=== PATIENT | female | born 1995 | race Caucasian/White ===

== ENCOUNTER 2024-06-16 01:21 | Emergency (ER) | payer OTHER, SELFPAY ==
[~2024-06-16] VITALS: Ht 165.1 cm; Wt 97.7 kg
[2024-06-16] MEDS: IBUPROFEN 600MG TAB PO ONE (02:45)
[2024-06-16] MEDS: PERCOCET 5MG/325MG TAB PO ONE (04:35)
[2024-06-16] MEDS ORDERED: PERC5TAB12 PO (05:15)
[2024-06-16] MEDS: OXYCODONE/APAP 5MG/325MG(HOME DOSE PACK) PO ONE (05:37)
[2024-06-16 05:38] VITALS: BP 129/70; TEMP 98.2; O2SAT 99
== END 2024-06-16 05:40 | disposition home or self-care (01) ==
LOC: M ED 01:21 → EDBD 01:21 → M ED 05:40
DX: S93.401A Sprain of unspecified ligament of right ankle, initial encounter (principal); X50.0XXA Overexertion from strenuous movement or load, initial encounter; Y92.009 Unspecified place in unspecified non-institutional (private) residence as the place of occurrence of the external cause; Y93.89 Activity, other specified; Y99.9 Unspecified external cause status; Z79.899 Other long term (current) drug therapy